=== PATIENT | male | born 1960 | race Caucasian/White ===

== ENCOUNTER 2021-10-24 18:22 | Emergency (ER) | payer MEDICAID ==
[~2021-10-24] VITALS: Ht 170.2 cm; Wt 90.1 kg
--- NOTE | 2021-10-24 18:47 | NUR ---
SPOKE TO DR JEAN CONCERNING PT. GIVEN VO TO START BASIC LABS. EKG IS ALSO ORDERED. NO ORDER TO START HEAD CT YET.
[2021-10-24 18:59] LABS: BASOPHILS # (AUTO) 0.1 X10'3 (0-0.2); BASOPHILS % (AUTO) 0.5 % (0-1); EOSINOPHILS # (AUTO) 0.1 X10'3 (0-0.9); EOSINOPHILS % (AUTO) 0.4 % (0-6); HEMATOCRIT 40.7 % (42.0-52.0); HEMOGLOBIN 13.4 g/dl (14.0-17.9); LYMPHOCYTES # (AUTO) 2.8 X10'3 (1.1-4.8); LYMPHOCYTES % (AUTO) 19.6 % (21-51); MEAN CORPUSCULAR HEMOGLOBIN 29.7 PG (27.0-31.0); MEAN PLATELET VOLUME 7.6 FL (7.4-10.4); MONOCYTES # (AUTO) 1.1 X10'3 (0-0.9); MONOCYTES % (AUTO) 7.8 % (2-12); NEUTROPHILS # (AUTO) 10.2 X10'3 (1.8-7.7); NEUTROPHILS % (AUTO) 71.7 % (42-75); PLATELET COUNT 373 X10'3 (140-440); RED BLOOD COUNT 4.52 X10'6 (4.70-6.10); RED CELL DISTRIBUTION WIDTH 13.9 % (11.5-14.5); WHITE BLOOD COUNT 14.2 X10'3 (4.5-11.0)
--- NOTE | 2021-10-24 19:00 | NUR ---
DR JEAN HAS ASSESSED PT. EKG COMPLETED. LABS DRAWN. PT BACK IN LOBBY WAITING FOR A ROOM.
[2021-10-24 19:21] LABS: ALANINE AMINOTRANSFERASE 28 U/L (12-78); ALBUMIN 3.6 G/DL (3.4-5.0); ALBUMIN/GLOBULIN RATIO 0.9 (1.1-1.5); ALKALINE PHOSPHATASE 95 IU/L (46-116); ANION GAP 7 (8-16); ASPARTATE AMINO TRANSFERASE 19 U/L (10-37); BILIRUBIN,TOTAL 0.2 MG/DL (0.1-1.0); BLOOD UREA NITROGEN 14 MG/DL (7-18); CALCIUM 9.6 MG/DL (8.5-10.1); CHLORIDE 110 MMOL/L (99-107); GLUCOSE 116 MG/DL (70-104); POTASSIUM 4.1 MMOL/L (3.5-5.1); SODIUM 145 MMOL/L (135-145); TOTAL CARBON DIOXIDE 27.8 MMOL/L (24-32); TOTAL PROTEIN 7.6 G/DL (6.4-8.2); eGFR 75 ML/MIN
--- NOTE | 2021-10-24 22:32 | NUR ---
PT GOT UP TO TALK WITH REGISTRATION AND FELL TO GROUND SEIZING. PT HAD A TONIC CLONIC MOVEMENTS FOR APPROXIMATELY 1.5 MINUTES AFTER WHICH HE BECAME POST ICTAL. DR VALLADARES CAME OUT TO [facility] AND ASSESSED PT. PT WAS PLACED ON A GURNEY BY [facility] AND MOVED TO ROOM 8.
[2021-10-24] MEDS ORDERED: levetiracetam inj 1,000 MG in normal saline 100ml IV soln 90 ML IV STA (22:36)
[2021-10-24] MEDS ORDERED: normal saline 1000ML IV soln IVB ONE (22:40)
[2021-10-24] MEDS ORDERED: LORazepam 2 mg/ml vial IV ONE (22:40)
--- NOTE | 2021-10-24 23:44 | NUR ---
Patient intermittently awake and talking. Able to answer questions appropriately. Patient current;y sleeping in bed, no signs of distres, vitals stable.
[2021-10-25 00:48] LABS: CLARITY,URINE CLEAR (Clear); COLOR,URINE YELLOW (Yellow); GLUCOSE, URINE NEGATIVE (Neg); KETONES,URINE NEGATIVE (Neg); LEUKOCYTE ESTERASE ,URINE NEGATIVE (Neg); NITRITES, URINE NEGATIVE (Neg); OCCULT BLOOD,URINE NEGATIVE (Neg); PH,URINE 5.5 (4.8-8.0); PROTEIN,URINE 30 mg/dl (Neg); UROBILINOGEN,URINE 0.2 E.U/dL (0.2-1.0)
[2021-10-25 00:53] LABS: UA COLLECTION TYPE URINAL
[2021-10-25 01:02] LABS: BACTERIA,URINE FEW /HPF (Neg); RBC,URINE NONE SEEN /HPF (0-2); SQUAMOUS EPITHELIAL CELL,UR FEW /LPF (FEW); WBC,URINE NONE SEEN /HPF (0-4)
--- NOTE | 2021-10-25 01:22 | NUR ---
Patient asleep, resting comfortably in bed. No signs of distress. Vital signs remain stable.
--- NOTE | 2021-10-25 04:37 | NUR ---
Patient awake. AOx4. Provided snacks per request with okay by MD. Patient tolerated well.
--- NOTE | 2021-10-25 09:45 | NUR ---
PT SPOKE WITH SS WORKER ERNESTINE. PT REQUESTING TO HAVE CAB TO TAKE HIM TO ATT STORE TO HAVE CHIP REPLACED OF HIS PHONE. PT REPORTS HE CAN CALL FRIENDS TO ASSIST HIM BACK TO HIS CAR AT [employer] WHICH HAS PT MEDICATION IN THERE. PT DECLINES MTM RIDE SET UP TO CAR IN [place].
--- NOTE | 2021-10-25 10:26 | NUR ---
PT PROVIDED SHIRT NO SHIRT FOUND WITH PT BELONGINGS
[2021-10-25 10:28] VITALS: BP 124/97
== END 2021-10-25 10:42 | disposition home or self-care (01) ==
LOC: ER 18:23
DX: R56.9 Unspecified convulsions (principal); R41.0 Disorientation, unspecified
CPT/HCPCS: 36415; 70450; 71045; 80053; 81001; 82948; 84145; 84484; 85025; 93005; 96361; 96365; 96375; 99285; J1953; J2060; J3490; J7030

== ENCOUNTER 2022-01-01 18:27 | Emergency (ER) | payer MEDICAID ==
[~2022-01-01] VITALS: Ht 175.3 cm; Wt 77.3 kg
[2022-01-01 19:17] VITALS: BP 135/69
[2022-01-01] MEDS ORDERED: ibuprofen 200mg tablet PO ONE (21:00)
== END 2022-01-01 21:18 | disposition home or self-care (01) ==
LOC: ER 18:28
DX: M79.675 Pain in left toe(s) (principal); M20.62 Acquired deformities of toe(s), unspecified, left foot; Z86.73 Personal history of transient ischemic attack (TIA), and cerebral infarction without residual deficits
CPT/HCPCS: 99283

== ENCOUNTER 2022-01-20 01:31 | Emergency (ER) | payer MEDICAID ==
[~2022-01-20] VITALS: Ht 182.9 cm; Wt 100.0 kg
--- NOTE | 2022-01-20 02:23 | NUR ---
He is more alert, warming up. He is back to baseline. Giving the nurses a comical hard time and teasing. He has no vascular access. Attempted. All veins are sclerotic and crepitus. made aware.
[2022-01-20 04:27] VITALS: BP 124/82
== END 2022-01-20 04:28 | disposition home or self-care (01) ==
LOC: ER 01:32
DX: I51.9 Heart disease, unspecified (principal); Z00.8 Encounter for other general examination
CPT/HCPCS: 70450; 71045; 93005; 99284

== ENCOUNTER 2022-08-29 14:45 | Emergency (ER) | payer MEDICAID | END 2022-08-29 15:37 | disposition left against medical advice (07) | LOC: ER 14:47 | DX: Z00.8 Encounter for other general examination (principal); Z53.21 Procedure and treatment not carried out due to patient leaving prior to being seen by health care provider ==

== ENCOUNTER 2022-09-09 18:56 | Emergency (ER) | payer MEDICAID ==
[~2022-09-09] VITALS: Ht 175.3 cm; Wt 81.8 kg
[2022-09-09 19:02] VITALS: BP 102/68
[2022-09-09] MEDS ORDERED: LIDOcaine 5% patch TP STA (19:39)
[2022-09-09] MEDS ORDERED: ibuprofen tablet 400 MG TABLET PO ONE (19:40)
[2022-09-09] MEDS ORDERED: LIDO1ADH78 TOP (19:44)
[2022-09-09] MEDS ORDERED: IBUP-860 PO (19:44)
== END 2022-09-09 20:31 | disposition home or self-care (01) ==
LOC: ER 18:57
DX: G89.29 Other chronic pain (principal); M54.59 Other low back pain; F17.200 Nicotine dependence, unspecified, uncomplicated; Z59.00 Homelessness unspecified; Z56.0 Unemployment, unspecified; Z91.81 History of falling
CPT/HCPCS: 99283; A6449

== ENCOUNTER 2022-09-12 21:54 | Emergency (ER) | payer MEDICAID ==
[~2022-09-12] VITALS: Ht 175.3 cm; Wt 70.0 kg
[~2022-09-12 21:54] MED LIST: IBUP-860 PO; LIDO1ADH78 TOP
[2022-09-12 22:18] VITALS: BP 106/47
[2022-09-12] MEDS ORDERED: ACET-890 PO (22:23)
== END 2022-09-12 23:58 | disposition home or self-care (01) ==
LOC: ER 21:55
DX: G89.29 Other chronic pain (principal); M54.9 Dorsalgia, unspecified; I51.9 Heart disease, unspecified; Z59.00 Homelessness unspecified; Z56.0 Unemployment, unspecified; Z79.899 Other long term (current) drug therapy
CPT/HCPCS: 99282

== ENCOUNTER 2022-09-15 03:23 | Emergency (ER) | payer MEDICAID ==
[~2022-09-15] VITALS: Ht 175.3 cm; Wt 86.4 kg
[~2022-09-15 03:23] MED LIST changes: +ACET-890 PO
[2022-09-15 03:27] VITALS: BP 159/78
[2022-09-15] MEDS ORDERED: HYDROcodone/acetaminophen 5mg/325mg tablet PO ONE ×2 (03:40→04:15)
[2022-09-15] MEDS ORDERED: naproxen 500mg tablet PO ONE ×2 (03:40→04:15)
== END 2022-09-15 04:30 | disposition left against medical advice (07) ==
LOC: ER 03:24
DX: M54.50 Low back pain, unspecified (principal); G89.29 Other chronic pain; R51.9 Headache, unspecified; Z59.00 Homelessness unspecified; Z56.0 Unemployment, unspecified
CPT/HCPCS: 99282

== ENCOUNTER 2022-09-17 12:03 | Emergency (ER) | payer MEDICAID ==
[~2022-09-17] VITALS: Ht 175.3 cm; Wt 84.1 kg
[2022-09-17 12:39] VITALS: BP 118/63
[2022-09-17] MEDS ORDERED: acetaminophen 325mg tablet PO ONE (14:45)
== END 2022-09-17 15:28 | disposition home or self-care (01) ==
LOC: ER 12:05
DX: G89.29 Other chronic pain (principal); M54.9 Dorsalgia, unspecified; Z88.0 Allergy status to penicillin; Z88.1 Allergy status to other antibiotic agents; Z88.8 Allergy status to other drugs, medicaments and biological substances; Z79.899 Other long term (current) drug therapy; Z59.00 Homelessness unspecified; Z56.0 Unemployment, unspecified
CPT/HCPCS: 99282; 99284

== ENCOUNTER 2023-11-11 20:11 | Inpatient (IN) | payer MEDICARE, MEDICAID ==
[~2023-11-11] VITALS: Ht 182.9 cm; Wt 93.0 kg
[~2023-11-11 20:11] MED LIST changes: -ACET-890 PO
[2023-11-11] MEDS ORDERED: levetiracetam inj 1,000 MG in normal saline 100ml IV soln 100 ML IV STA (20:23)
[2023-11-11] MEDS: normal saline 1000ML IV soln IVB ONE (20:33)
[2023-11-11] MEDS: levetiracetam-NS 1000mg/100ml 100 ML IV STA (20:39)
[2023-11-11] MEDS: levetiracetam 250mg tablet PO ONE (22:04)
[2023-11-11] MEDS: acetaminophen 325mg tablet PO ONE (22:10)
[2023-11-11 22:11] LABS: BASOPHILS # (AUTO) 0.1 X10'3 (0-0.2); BASOPHILS % (AUTO) 0.4 % (0-1); EOSINOPHILS # (AUTO) 0.1 X10'3 (0-0.9); EOSINOPHILS % (AUTO) 0.7 % (0-6); HEMATOCRIT 35.7 % (42.0-52.0); LYMPHOCYTES # (AUTO) 1.7 X10'3 (1.1-4.8); LYMPHOCYTES % (AUTO) 9.9 % (21-51); MEAN CORPUSCULAR HEMOGLOBIN 30.7 PG (27.0-31.0); MEAN CORPUSCULAR HGB CONC 33.7 g/dL (33.0-36.5); MEAN CORPUSCULAR VOLUME 91.1 FL (78-98); MEAN PLATELET VOLUME 7.1 FL (7.4-10.4); MONOCYTES # (AUTO) 1.3 X10'3 (0-0.9); MONOCYTES % (AUTO) 7.6 % (2-12); NEUTROPHILS # (AUTO) 14.2 X10'3 (1.8-7.7); NEUTROPHILS % (AUTO) 81.4 % (42-75); PLATELET COUNT 296 X10'3 (140-440); RED BLOOD COUNT 3.92 X10'6 (4.70-6.10); RED CELL DISTRIBUTION WIDTH 13.5 % (11.5-14.5); WHITE BLOOD COUNT 17.4 X10'3 (4.5-11.0)
[2023-11-11 22:23] LABS: ALANINE AMINOTRANSFERASE 26 U/L (12-78); ALBUMIN 3.1 G/DL (3.4-5.0); ALKALINE PHOSPHATASE 88 IU/L (46-116); ANION GAP 8 (8-16); ASPARTATE AMINO TRANSFERASE 31 U/L (10-37); BILIRUBIN,TOTAL 0.2 MG/DL (0.1-1.0); BLOOD UREA NITROGEN 14 MG/DL (7-18); BUN/CREATININE RATIO 16.7 (10.0-20.0); CALCIUM 8.6 MG/DL (8.5-10.1); CHLORIDE 102 MMOL/L (99-107); CREATININE 0.84 MG/DL (0.60-1.10); GLUCOSE 114 MG/DL (70-104); POTASSIUM 3.9 MMOL/L (3.5-5.1); SODIUM 134 MMOL/L (135-145); TOTAL CARBON DIOXIDE 24.3 MMOL/L (24-32); TOTAL PROTEIN 6.2 G/DL (6.4-8.2); eCRCL 88 ML/MIN; eGFR > 90 ML/MIN
[2023-11-11] MEDS ORDERED: acetaminophen 325mg tablet PO PRN ×2 (23:45)
[2023-11-11] MEDS ORDERED: magnesium Cl slow-release 64mg tablet PO PRN (23:45)
[2023-11-11] MEDS ORDERED: magnesium sulf-water 2g/50mL 50 ML IV PRN (23:45)
[2023-11-11] MEDS ORDERED: mag hydrox/Alum hydrox/simeth 30ml oral suspension PO PRN (23:45)
[2023-11-11] MEDS ORDERED: potassium Cl 40MEQ/1/2NS 520ml 520 ML IV PRN (23:45)
[2023-11-11] MEDS ORDERED: magnesium sulf-water 4G/100mL 100 ML IV PRN (23:45)
[2023-11-11] MEDS ORDERED: ondansetron/PF 4mg/2ml inj IV PRN (23:45)
[2023-11-11] MEDS ORDERED: magnesium hydroxide 30ml (MOM) UD suspension PO PRN (23:45)
[2023-11-11] MEDS ORDERED: potassium Cl 20 mEq SR tablet PO PRN ×2 (23:45)
[2023-11-12 00:20] LABS: HEMOGLOBIN A1C 5.6 % (4.5-6.2)
[2023-11-12 00:24] LABS: PRO BRAIN NATRIURETIC PEPTIDE 128 PG/ML (0-125)
[2023-11-12 01:36] LABS: BASOPHILS % (AUTO) 0.2 % (0-1); EOSINOPHILS # (AUTO) 0.1 X10'3 (0-0.9); EOSINOPHILS % (AUTO) 0.6 % (0-6); HEMATOCRIT 36.5 % (42.0-52.0); LYMPHOCYTES # (AUTO) 1.9 X10'3 (1.1-4.8); LYMPHOCYTES % (AUTO) 10.9 % (21-51); MEAN CORPUSCULAR HGB CONC 32.9 g/dL (33.0-36.5); MEAN CORPUSCULAR VOLUME 91.1 FL (78-98); MEAN PLATELET VOLUME 7.6 FL (7.4-10.4); MONOCYTES # (AUTO) 1.1 X10'3 (0-0.9); MONOCYTES % (AUTO) 6.3 % (2-12); NEUTROPHILS # (AUTO) 14.4 X10'3 (1.8-7.7); PLATELET COUNT 299 X10'3 (140-440); RED CELL DISTRIBUTION WIDTH 13.6 % (11.5-14.5); WHITE BLOOD COUNT 17.6 X10'3 (4.5-11.0)
[2023-11-12 01:45] LABS: ANION GAP 6 (8-16); BLOOD UREA NITROGEN 12 MG/DL (7-18); CALCIUM 8.5 MG/DL (8.5-10.1); CHLORIDE 104 MMOL/L (99-107); CHOL/HDL RATIO 2.7 (0.00-4.99); CHOLESTEROL 135 MG/DL (0-200); GLUCOSE 111 MG/DL (70-104); HDL CHOLESTEROL 50 MG/DL (35-60); LDL CHOLESTEROL 78 MG/DL (50-100); MAGNESIUM 1.9 MG/DL (1.5-2.4); SODIUM 135 MMOL/L (135-145); TOTAL CARBON DIOXIDE 25.3 MMOL/L (24-32); TRIGLYCERIDES 53 MG/DL (20-135); eCRCL 92 ML/MIN; eGFR > 90 ML/MIN
[2023-11-12 05:13] LABS: BILIRUBIN,URINE NEGATIVE (Neg); CLARITY,URINE CLEAR (Clear); COLOR,URINE YELLOW (Yellow); GLUCOSE, URINE NEGATIVE (Neg); KETONES,URINE NEGATIVE (Neg); LEUKOCYTE ESTERASE ,URINE NEGATIVE (Neg); NITRITES, URINE NEGATIVE (Neg); OCCULT BLOOD,URINE TRACE-LYSED (Neg); PROTEIN,URINE NEGATIVE (Neg); UROBILINOGEN,URINE 0.2 E.U/dL (0.2-1.0)
[2023-11-12 05:20] LABS: UA COLLECTION TYPE CLN CATCH MIDSTREAM
[2023-11-12 05:41] LABS: BACTERIA,URINE FEW /HPF (Neg); RBC,URINE 0-2 /HPF (0-2); SQUAMOUS EPITHELIAL CELL,UR FEW /LPF (FEW); WBC,URINE 0-4 /HPF (0-4)
[2023-11-12] MEDS ORDERED: PANT40TA54 PO (06:22)
[2023-11-12] MEDS ORDERED: CLOP75TA34 PO (06:22)
[2023-11-12] MEDS ORDERED: LISI10TA27 PO (06:22)
[2023-11-12] MEDS ORDERED: ATOR40TA72 PO (06:22)
[2023-11-12] MEDS ORDERED: METO-395 PO (06:22)
[2023-11-12] MEDS ORDERED: FLO0.4C PO (06:22)
[2023-11-12] MEDS ORDERED: LACO100T4 PO (06:22)
[2023-11-12] MEDS ORDERED: CHOL100017 PO (06:22)
[2023-11-12] MEDS: K and/or MAG REPLACEMENT MC SCH (08:00)
[2023-11-12] MEDS: docusate sod 100mg capsule PO SCH (08:00)
[2023-11-12 10:35] VITALS: BP 121/61; PULSE 60; RESP 16; TEMP 98; O2SAT 95
[2023-11-12 14:28] VITALS: RESP 16; O2SAT 95
[2023-11-12 18:00] VITALS: BP 124/65; PULSE 64; RESP 20; TEMP 97.6; O2SAT 95
[2023-11-12 23:00] VITALS: BP 121/63; PULSE 61; RESP 18; TEMP 97.9; O2SAT 94
[2023-11-12] MEDS: LACOSAMIDE 50 MG TABLET PO SCH (23:15)
[2023-11-13 05:32] LABS: BASOPHILS % (AUTO) 0.3 % (0-1); EOSINOPHILS # (AUTO) 0.4 X10'3 (0-0.9); EOSINOPHILS % (AUTO) 2.9 % (0-6); HEMATOCRIT 37.8 % (42.0-52.0); HEMOGLOBIN 12.3 g/dl (14.0-17.9); LYMPHOCYTES # (AUTO) 3.3 X10'3 (1.1-4.8); LYMPHOCYTES % (AUTO) 25.2 % (21-51); MEAN CORPUSCULAR HEMOGLOBIN 29.9 PG (27.0-31.0); MEAN CORPUSCULAR HGB CONC 32.5 g/dL (33.0-36.5); MEAN CORPUSCULAR VOLUME 91.8 FL (78-98); MEAN PLATELET VOLUME 7.3 FL (7.4-10.4); MONOCYTES # (AUTO) 1.2 X10'3 (0-0.9); MONOCYTES % (AUTO) 9.1 % (2-12); NEUTROPHILS # (AUTO) 8.2 X10'3 (1.8-7.7); NEUTROPHILS % (AUTO) 62.5 % (42-75); PLATELET COUNT 307 X10'3 (140-440); RED BLOOD COUNT 4.12 X10'6 (4.70-6.10); RED CELL DISTRIBUTION WIDTH 13.7 % (11.5-14.5); WHITE BLOOD COUNT 13.1 X10'3 (4.5-11.0)
[2023-11-13 05:39] LABS: ANION GAP 8 (8-16); BLOOD UREA NITROGEN 9 MG/DL (7-18); CALCIUM 8.9 MG/DL (8.5-10.1); CHLORIDE 107 MMOL/L (99-107); CREATININE 0.75 MG/DL (0.60-1.10); GLUCOSE 79 MG/DL (70-104); MAGNESIUM 2.1 MG/DL (1.5-2.4); POTASSIUM 3.9 MMOL/L (3.5-5.1); SODIUM 142 MMOL/L (135-145); TOTAL CARBON DIOXIDE 26.8 MMOL/L (24-32); eCRCL 108 ML/MIN; eGFR > 90 ML/MIN
[2023-11-13 06:11] VITALS: BP 118/69; PULSE 61; RESP 16; TEMP 97.5; O2SAT 97
[2023-11-13] MEDS: lisinopril 10 MG tablet PO SCH (08:00)
[2023-11-13] MEDS: pantoprazole 40mg Tablet.DR PO SCH (09:16)
[2023-11-13] MEDS: metoprolol succinate 25mg (24-HOUR) SR. Tablet PO SCH (09:16)
[2023-11-13] MEDS: clopidogrel 75mg tablet PO SCH (09:17)
[2023-11-13] MEDS: atorvastatin 20mg tablet PO SCH (09:17)
[2023-11-13] MEDS: tamsulosin 0.4mg capsule PO SCH (09:17)
[2023-11-13 09:30] VITALS: RESP 16
[2023-11-13 10:00] VITALS: BP 116/58; PULSE 60; RESP 18; TEMP 98.6; O2SAT 93
[2023-11-13] MEDS ORDERED: LACO50TA2 PO (15:07)
[2023-11-13] MEDS ORDERED: LACO100T2 PO (15:13)
[2023-11-13] MEDS ORDERED: SULF1TAB49 PO (16:02)
[2023-11-13] MEDS: DOXYCYCLINE 100MG CAPSULE PO SCH (16:17)
== END 2023-11-13 16:58 | disposition home or self-care (01) | DRG 101 ==
LOC: ER 20:11 → ED HOLD 23:55 → ORTHO 4S 11-12 09:04
PROVIDERS: ADMIT Internal Medicine Critical Care Medicine; ATTEND Registered Nurse Psychiatric/Mental Health
PROC: 4A00X4Z Measurement of Central Nervous Electrical Activity, External Approach (ICD-10-PCS; principal; 2023-11-13)
DX: G40.909 Epilepsy, unspecified, not intractable, without status epilepticus (principal); Z59.00 Homelessness unspecified; M48.02 Spinal stenosis, cervical region; G89.29 Other chronic pain; M54.9 Dorsalgia, unspecified; D72.829 Elevated white blood cell count, unspecified; Z79.899 Other long term (current) drug therapy; Z88.1 Allergy status to other antibiotic agents; Z88.0 Allergy status to penicillin; Z88.6 Allergy status to analgesic agent; Z88.2 Allergy status to sulfonamides; Z86.73 Personal history of transient ischemic attack (TIA), and cerebral infarction without residual deficits
CPT/HCPCS: 36415; 70450; 71045; 72125; 80048; 80053; 80061; 81001; 83036; 83605; 83735; 83880; 84145; 85025; 93005; 95816; 97110; 97116; 97161; 99285; G0378; J1953; J7030; L0172

== ENCOUNTER 2023-12-29 18:16 | Emergency (ER) | payer MEDICAID, MEDICARE ==
[~2023-12-29] VITALS: Ht 172.7 cm; Wt 84.1 kg
[~2023-12-29 18:16] MED LIST changes: +ATOR40TA72 PO; +CHOL100017 PO; +CLOP75TA34 PO; +FLO0.4C PO; -IBUP-860 PO; +LACO100T2 PO; +LACO50TA2 PO; -LIDO1ADH78 TOP; +LISI10TA27 PO; +METO-395 PO; +PANT40TA54 PO
[2023-12-29 18:17] VITALS: BP 141/66; PULSE 65; O2SAT 98
[2023-12-29 18:32] VITALS: RESP 17
[2023-12-29] MEDS: ketorolac trometh 30MG/ML vial 30 MG/ML VIAL IM ONE (18:32)
[2023-12-29] MEDS ORDERED: IBUP-1984 PO (18:38)
[2023-12-29 18:52] VITALS: TEMP 98.8
== END 2023-12-29 18:54 | disposition home or self-care (01) ==
LOC: ER 18:16
DX: S46.811A Strain of other muscles, fascia and tendons at shoulder and upper arm level, right arm, initial encounter (principal); S29.012A Strain of muscle and tendon of back wall of thorax, initial encounter; M62.838 Other muscle spasm; G89.29 Other chronic pain; G40.909 Epilepsy, unspecified, not intractable, without status epilepticus; Z88.0 Allergy status to penicillin; Z88.8 Allergy status to other drugs, medicaments and biological substances; Z88.1 Allergy status to other antibiotic agents; Z79.899 Other long term (current) drug therapy; Z86.73 Personal history of transient ischemic attack (TIA), and cerebral infarction without residual deficits; Z59.00 Homelessness unspecified; X58.XXXA Exposure to other specified factors, initial encounter; Y93.89 Activity, other specified; Y92.89 Other specified places as the place of occurrence of the external cause; Y99.8 Other external cause status
CPT/HCPCS: 96372; 99283; J1885

== ENCOUNTER 2024-01-02 19:31 | Emergency (ER) | payer MEDICARE ==
[~2024-01-02] VITALS: Ht 172.7 cm; Wt 90.9 kg
[~2024-01-02 19:31] MED LIST changes: +IBUP-1984 PO
[2024-01-02 20:17] LABS: BASOPHILS % (AUTO) 0.3 % (0-1); EOSINOPHILS # (AUTO) 0.1 X10'3 (0-0.9); EOSINOPHILS % (AUTO) 0.8 % (0-6); HEMATOCRIT 39.9 % (42.0-52.0); HEMOGLOBIN 13.2 g/dl (14.0-17.9); LYMPHOCYTES # (AUTO) 2.7 X10'3 (1.1-4.8); LYMPHOCYTES % (AUTO) 19.4 % (21-51); MEAN CORPUSCULAR HEMOGLOBIN 30.5 PG (27.0-31.0); MEAN CORPUSCULAR HGB CONC 33.1 g/dL (33.0-36.5); MEAN CORPUSCULAR VOLUME 92.3 FL (78-98); MEAN PLATELET VOLUME 7.1 FL (7.4-10.4); MONOCYTES # (AUTO) 1.1 X10'3 (0-0.9); MONOCYTES % (AUTO) 7.7 % (2-12); NEUTROPHILS # (AUTO) 9.9 X10'3 (1.8-7.7); NEUTROPHILS % (AUTO) 71.8 % (42-75); PLATELET COUNT 314 X10'3 (140-440); RED BLOOD COUNT 4.32 X10'6 (4.70-6.10); RED CELL DISTRIBUTION WIDTH 14.3 % (11.5-14.5); WHITE BLOOD COUNT 13.8 X10'3 (4.5-11.0)
[2024-01-02 20:40] LABS: ALANINE AMINOTRANSFERASE 25 U/L (12-78); ALBUMIN 3.7 G/DL (3.4-5.0); ALBUMIN/GLOBULIN RATIO 1.1 (1.1-1.5); ALKALINE PHOSPHATASE 99 IU/L (46-116); ANION GAP 5 (8-16); ASPARTATE AMINO TRANSFERASE 10 U/L (10-37); BILIRUBIN,TOTAL 0.2 MG/DL (0.1-1.0); BLOOD UREA NITROGEN 13 MG/DL (7-18); BUN/CREATININE RATIO 15.1 (10.0-20.0); CALCIUM 9.5 MG/DL (8.5-10.1); CHLORIDE 106 MMOL/L (99-107); CREATININE 0.86 MG/DL (0.60-1.10); GLUCOSE 92 MG/DL (70-104); SODIUM 139 MMOL/L (135-145); TOTAL CARBON DIOXIDE 28.3 MMOL/L (24-32); eCRCL 83 ML/MIN; eGFR 89 ML/MIN
[2024-01-02 20:45] LABS: BILIRUBIN,URINE NEGATIVE (Neg); CLARITY,URINE CLEAR (Clear); COLOR,URINE YELLOW (Yellow); GLUCOSE, URINE NEGATIVE (Neg); KETONES,URINE NEGATIVE (Neg); LEUKOCYTE ESTERASE ,URINE TRACE (Neg); NITRITES, URINE NEGATIVE (Neg); OCCULT BLOOD,URINE NEGATIVE (Neg); PROTEIN,URINE NEGATIVE (Neg); UROBILINOGEN,URINE 0.2 E.U/dL (0.2-1.0)
[2024-01-02 20:50] LABS: UA COLLECTION TYPE URINAL
[2024-01-02 20:51] LABS: BACTERIA,URINE FEW /HPF (Neg); RBC,URINE 0-2 /HPF (0-2); SQUAMOUS EPITHELIAL CELL,UR NONE SEEN /LPF (FEW)
[2024-01-02 20:54] LABS: URINE AMPHETAMINE SCREEN NEGATIVE (Neg); URINE BARBITUATE SCREEN NEGATIVE (Neg); URINE BENZODIAZEPINES SCREEN NEGATIVE (Neg); URINE CANNABINOID SCREEN NEGATIVE (Neg); URINE COCAINE SCREEN NEGATIVE (Neg); URINE METHADONE SCREEN NEGATIVE (Neg); URINE OPIATE SCREEN NEGATIVE (Neg); URINE PHENCYCLIDINE SCREEN NEGATIVE (Neg)
[2024-01-02] MEDS: nitrofuran monohydrate/nitrofuran macrocrysal 100 MG (MacroBID) capsule PO ONE (23:02)
[2024-01-02] MEDS: ketorolac trometh 30MG/ML vial 30 MG/ML VIAL IM ONE (23:02)
[2024-01-02 23:15] VITALS: BP 156/72; PULSE 63; RESP 17; TEMP 98.9; O2SAT 96
== END 2024-01-02 23:17 | disposition home or self-care (01) ==
LOC: ER 19:31
DX: R07.89 Other chest pain (principal); G89.29 Other chronic pain; M54.9 Dorsalgia, unspecified; Z88.0 Allergy status to penicillin; Z88.8 Allergy status to other drugs, medicaments and biological substances; Z79.899 Other long term (current) drug therapy; Z86.73 Personal history of transient ischemic attack (TIA), and cerebral infarction without residual deficits; Z56.0 Unemployment, unspecified; Z59.00 Homelessness unspecified
CPT/HCPCS: 36415; 71045; 80053; 80305; 81001; 84484; 85025; 87077; 87088; 87186; 93005; 96372; 99285; J1885

== ENCOUNTER 2024-01-08 16:54 | Emergency (ER) | payer MEDICARE ==
[~2024-01-08] VITALS: Ht 172.7 cm; Wt 86.0 kg
[2024-01-08 17:02] VITALS: BP 147/84; PULSE 78; RESP 16; O2SAT 99
[2024-01-08] MEDS: acetaminophen 325mg tablet PO ONE (19:11)
[2024-01-08 20:06] VITALS: TEMP 98.1
== END 2024-01-08 20:08 | disposition home or self-care (01) ==
LOC: ER 16:55
DX: S29.012A Strain of muscle and tendon of back wall of thorax, initial encounter (principal); M79.605 Pain in left leg; G89.29 Other chronic pain; M54.9 Dorsalgia, unspecified; Z86.73 Personal history of transient ischemic attack (TIA), and cerebral infarction without residual deficits; Z59.00 Homelessness unspecified; Z56.0 Unemployment, unspecified; Z60.2 Problems related to living alone; Z88.0 Allergy status to penicillin; Z88.8 Allergy status to other drugs, medicaments and biological substances; Z79.899 Other long term (current) drug therapy; X58.XXXA Exposure to other specified factors, initial encounter; Y93.89 Activity, other specified; Y92.89 Other specified places as the place of occurrence of the external cause; Y99.8 Other external cause status
CPT/HCPCS: 93971; 99284

== ENCOUNTER 2024-03-24 13:55 | Inpatient (IN) | payer MEDICARE, MEDICAID ==
[~2024-03-24] VITALS: Ht 172.7 cm; Wt 78.0 kg
[~2024-03-24 13:55] MED LIST changes: -IBUP-1984 PO
[2024-03-24 14:31] LABS: BASOPHILS % (AUTO) 0.3 % (0-1); EOSINOPHILS % (AUTO) 0.4 % (0-6); HEMATOCRIT 43.1 % (42.0-52.0); HEMOGLOBIN 14.7 g/dl (14.0-17.9); LYMPHOCYTES # (AUTO) 1.9 X10'3 (1.1-4.8); LYMPHOCYTES % (AUTO) 22.2 % (21-51); MEAN CORPUSCULAR HEMOGLOBIN 30.3 PG (27.0-31.0); MEAN CORPUSCULAR VOLUME 89.3 FL (78-98); MEAN PLATELET VOLUME 7.9 FL (7.4-10.4); MONOCYTES # (AUTO) 0.9 X10'3 (0-0.9); NEUTROPHILS # (AUTO) 5.8 X10'3 (1.8-7.7); NEUTROPHILS % (AUTO) 67.1 % (42-75); PLATELET COUNT 217 X10'3 (140-440); RED BLOOD COUNT 4.83 X10'6 (4.70-6.10); RED CELL DISTRIBUTION WIDTH 13.6 % (11.5-14.5); WHITE BLOOD COUNT 8.7 X10'3 (4.5-11.0)
[2024-03-24 14:55] LABS: ALANINE AMINOTRANSFERASE 18 U/L (12-78); ALBUMIN 3.5 G/DL (3.4-5.0); ALBUMIN/GLOBULIN RATIO 0.7 (1.1-1.5); ALKALINE PHOSPHATASE 89 IU/L (46-116); ANION GAP 8 (8-16); ASPARTATE AMINO TRANSFERASE 29 U/L (10-37); BILIRUBIN,TOTAL 0.3 MG/DL (0.1-1.0); BLOOD UREA NITROGEN 14 MG/DL (7-18); BUN/CREATININE RATIO 13.6 (10.0-20.0); CALCIUM 9.6 MG/DL (8.5-10.1); CHLORIDE 96 MMOL/L (99-107); CREATININE 1.03 MG/DL (0.60-1.10); GLUCOSE 100 MG/DL (70-104); SODIUM 131 MMOL/L (135-145); TOTAL CARBON DIOXIDE 26.8 MMOL/L (24-32); TOTAL PROTEIN 8.3 G/DL (6.4-8.2); eCRCL 68 ML/MIN; eGFR 72 ML/MIN
[2024-03-24 14:59] LABS: PRO BRAIN NATRIURETIC PEPTIDE 240 PG/ML (0-125)
[2024-03-24] MEDS ORDERED: magnesium hydroxide 30ml (MOM) UD suspension PO PRN (20:10)
[2024-03-24] MEDS ORDERED: acetaminophen 325mg tablet PO PRN (20:10)
[2024-03-24] MEDS ORDERED: metoprolol tartrate 1mg/ml inj IV PRN (20:10)
[2024-03-24] MEDS ORDERED: potassium Cl 40MEQ/1/2NS 520ml 520 ML IV PRN (20:10)
[2024-03-24] MEDS ORDERED: potassium Cl 20 mEq SR tablet PO PRN ×2 (20:10)
[2024-03-24] MEDS ORDERED: magnesium Cl slow-release 64mg tablet PO PRN (20:10)
[2024-03-24] MEDS ORDERED: magnesium sulf-water 2g/50mL 50 ML IV PRN (20:10)
[2024-03-24] MEDS ORDERED: ondansetron/PF 4mg/2ml inj IV PRN (20:10)
[2024-03-24] MEDS ORDERED: aminophylline 500mg/20ml vial IV PRN (20:10)
[2024-03-24] MEDS ORDERED: nitroGLYCERIN 0.4mg SUBLingual tab SL PRN ×2 (20:10)
[2024-03-24] MEDS ORDERED: morphine 2 MG/ML inj. syringe IV PRN (20:10)
[2024-03-24] MEDS ORDERED: magnesium sulf-water 4G/100mL 100 ML IV PRN (20:10)
[2024-03-24] MEDS ORDERED: mag hydrox/Alum hydrox/simeth 30ml oral suspension PO PRN (20:10)
[2024-03-24] MEDS: aspirin 325mg tablet PO ONE (21:02)
[2024-03-24 22:15] VITALS: BP_SYST 77; BP_SYST 83; BP_DIAS 47; BP_DIAS 53; PULSE 77; RESP 17; TEMP 98.3; O2SAT 95
[2024-03-24] MEDS: nitroGLYCERIN 0.4mg SUBLingual tab SL ONE (22:50)
[2024-03-24] MEDS: normal saline 1000ml 1,000 ML IV ONE (23:32)
[2024-03-25] VITALS (18 sets, daily range): BP systolic 82–123; BP diastolic 45–68; PULSE 60–90; RESP 13–20; TEMP 97.2–98.1; O2SAT 93–98
[2024-03-25] MEDS: normal saline 1000ml 1,000 ML IV SCH ×2 (00:53→01:30)
[2024-03-25] MEDS: levetiracetam 250mg tablet PO SCH (00:56)
[2024-03-25] MEDS: diltiazem 30mg tablet PO SCH (01:31)
[2024-03-25 06:50] LABS: BASOPHILS % (AUTO) 0.3 % (0-1); EOSINOPHILS # (AUTO) 0.1 X10'3 (0-0.9); EOSINOPHILS % (AUTO) 0.9 % (0-6); HEMATOCRIT 34.6 % (42.0-52.0); HEMOGLOBIN 11.8 g/dl (14.0-17.9); LYMPHOCYTES # (AUTO) 2.5 X10'3 (1.1-4.8); LYMPHOCYTES % (AUTO) 26.5 % (21-51); MEAN CORPUSCULAR HEMOGLOBIN 30.3 PG (27.0-31.0); MEAN CORPUSCULAR VOLUME 89.1 FL (78-98); MEAN PLATELET VOLUME 8.6 FL (7.4-10.4); MONOCYTES # (AUTO) 1.2 X10'3 (0-0.9); MONOCYTES % (AUTO) 12.7 % (2-12); NEUTROPHILS # (AUTO) 5.6 X10'3 (1.8-7.7); NEUTROPHILS % (AUTO) 59.6 % (42-75); PLATELET COUNT 211 X10'3 (140-440); RED BLOOD COUNT 3.88 X10'6 (4.70-6.10); RED CELL DISTRIBUTION WIDTH 13.5 % (11.5-14.5); WHITE BLOOD COUNT 9.3 X10'3 (4.5-11.0)
[2024-03-25 07:04] LABS: APTT 25 SECONDS (22-32); PROTHROMBIN TIME 10.3 SECONDS (9.0-12.0)
[2024-03-25 07:23] LABS: HEMOGLOBIN A1C 5.9 % (4.5-6.2)
[2024-03-25 07:52] LABS: ALANINE AMINOTRANSFERASE 14 U/L (12-78); ALBUMIN 2.5 G/DL (3.4-5.0); ALBUMIN/GLOBULIN RATIO 0.7 (1.1-1.5); ALKALINE PHOSPHATASE 62 IU/L (46-116); ANION GAP 9 (8-16); ASPARTATE AMINO TRANSFERASE 21 U/L (10-37); BILIRUBIN,TOTAL 0.3 MG/DL (0.1-1.0); BLOOD UREA NITROGEN 9 MG/DL (7-18); CALCIUM 8.3 MG/DL (8.5-10.1); CHLORIDE 103 MMOL/L (99-107); CHOL/HDL RATIO 3.8 (0.00-4.99); CHOLESTEROL 118 MG/DL (0-200); CREATININE 0.75 MG/DL (0.60-1.10); GLUCOSE 71 MG/DL (70-104); HDL CHOLESTEROL 31 MG/DL (35-60); MAGNESIUM 1.8 MG/DL (1.5-2.4); PHOSPHORUS 2.9 MG/DL (2.3-4.5); POTASSIUM 3.7 MMOL/L (3.5-5.1); SODIUM 136 MMOL/L (135-145); THYROID STIMULATING HORMONE 0.92 ulU/ml (0.34-4.50); TOTAL CARBON DIOXIDE 24.3 MMOL/L (24-32); TRIGLYCERIDES 99 MG/DL (20-135); eCRCL 94 ML/MIN; eGFR > 90 ML/MIN
[2024-03-25 07:56] LABS: LDL CHOLESTEROL 76 MG/DL (50-100)
[2024-03-25] MEDS: K and/or MAG REPLACEMENT MC SCH (08:00)
[2024-03-25] MEDS: docusate sod 100mg capsule PO SCH (08:00)
[2024-03-25] MEDS: aspirin 81mg, enteric-coated 1 TAB TABLET.DR PO SCH (08:39)
[2024-03-25] MEDS: atorvastatin 20mg tablet PO SCH (08:39)
[2024-03-25] MEDS: clopidogrel 75mg tablet PO SCH (08:39)
[2024-03-25 09:18] LABS: FREE T4 (FREE THYROXINE) 1.02 NG/DL (0.73-1.40)
[2024-03-25] MEDS: normal saline 1000ml 1,000 ML IV ONE (11:54)
[2024-03-25] MEDS: normal saline 500ml IV soln 500 ML IV ONE (11:55)
[2024-03-25] MEDS: regadenoson 0.4mg/5ml syringe IV PRN (12:11)
[2024-03-25] MEDS ORDERED: HYDROcodone/acetaminophen 5mg/325mg tablet PO PRN (15:45)
[2024-03-25] MEDS: enoxaparin 40mg/0.4ml syringe SQ SCH (20:58)
[2024-03-26 02:00] VITALS: BP 103/50; PULSE 60; RESP 16; TEMP 97.6; O2SAT 93
[2024-03-26 04:49] VITALS: RESP 20; O2SAT 98
[2024-03-26 06:00] VITALS: BP 118/52; PULSE 60; RESP 14; TEMP 98; O2SAT 93
[2024-03-26 06:56] LABS: BASOPHILS % (AUTO) 0.3 % (0-1); EOSINOPHILS # (AUTO) 0.1 X10'3 (0-0.9); EOSINOPHILS % (AUTO) 0.8 % (0-6); HEMATOCRIT 34.9 % (42.0-52.0); HEMOGLOBIN 11.8 g/dl (14.0-17.9); LYMPHOCYTES # (AUTO) 2.2 X10'3 (1.1-4.8); LYMPHOCYTES % (AUTO) 21.3 % (21-51); MEAN CORPUSCULAR HEMOGLOBIN 30.2 PG (27.0-31.0); MEAN CORPUSCULAR HGB CONC 33.7 g/dL (33.0-36.5); MEAN CORPUSCULAR VOLUME 89.5 FL (78-98); MEAN PLATELET VOLUME 8.2 FL (7.4-10.4); MONOCYTES # (AUTO) 0.9 X10'3 (0-0.9); MONOCYTES % (AUTO) 8.9 % (2-12); NEUTROPHILS % (AUTO) 68.7 % (42-75); PLATELET COUNT 255 X10'3 (140-440); RED BLOOD COUNT 3.89 X10'6 (4.70-6.10); RED CELL DISTRIBUTION WIDTH 13.7 % (11.5-14.5); WHITE BLOOD COUNT 10.2 X10'3 (4.5-11.0)
[2024-03-26 07:03] LABS: APTT 29 SECONDS (22-32); PROTHROMBIN TIME 10.4 SECONDS (9.0-12.0)
[2024-03-26 07:27] LABS: ALANINE AMINOTRANSFERASE 12 U/L (12-78); ALBUMIN 2.4 G/DL (3.4-5.0); ALBUMIN/GLOBULIN RATIO 0.7 (1.1-1.5); ALKALINE PHOSPHATASE 60 IU/L (46-116); ANION GAP 7 (8-16); ASPARTATE AMINO TRANSFERASE 17 U/L (10-37); BILIRUBIN,TOTAL 0.3 MG/DL (0.1-1.0); BLOOD UREA NITROGEN 4 MG/DL (7-18); BUN/CREATININE RATIO 6.8 (10.0-20.0); CALCIUM 8.3 MG/DL (8.5-10.1); CHLORIDE 105 MMOL/L (99-107); CREATININE 0.59 MG/DL (0.60-1.10); GLUCOSE 83 MG/DL (70-104); PHOSPHORUS 2.6 MG/DL (2.3-4.5); POTASSIUM 3.6 MMOL/L (3.5-5.1); SODIUM 136 MMOL/L (135-145); TOTAL CARBON DIOXIDE 24.5 MMOL/L (24-32); TOTAL PROTEIN 5.8 G/DL (6.4-8.2); eCRCL 119 ML/MIN; eGFR > 90 ML/MIN
[2024-03-26 08:42] LABS: MAGNESIUM 1.9 MG/DL (1.5-2.4)
[2024-03-26] MEDS ORDERED: HYDR-3965 PO (10:56)
[2024-03-26] MEDS: acetaminophen 325mg tablet PO PRN (11:02)
[2024-03-26 12:00] VITALS: BP 112/57; PULSE 60; RESP 18; TEMP 97.2; O2SAT 93
== END 2024-03-26 13:28 | disposition home or self-care (01) | DRG 313 ==
LOC: ER 13:55 → ED HOLD 20:10 → PCU 3S 22:14
PROVIDERS: ADMIT Surgery Surgical Critical Care; ATTEND Internal Medicine
PROC: 4A02XM4 Measurement of Cardiac Total Activity, External Approach (ICD-10-PCS; principal; 2024-03-25)
PROC: 3E033HZ Introduction of Radioactive Substance into Peripheral Vein, Percutaneous Approach (ICD-10-PCS; 2024-03-25)
DX: R07.89 Other chest pain (principal); E87.1 Hypo-osmolality and hyponatremia; E78.5 Hyperlipidemia, unspecified; E87.8 Other disorders of electrolyte and fluid balance, not elsewhere classified; Z86.73 Personal history of transient ischemic attack (TIA), and cerebral infarction without residual deficits; Z88.1 Allergy status to other antibiotic agents; Z88.0 Allergy status to penicillin; Z88.8 Allergy status to other drugs, medicaments and biological substances; Z79.899 Other long term (current) drug therapy; Z95.1 Presence of aortocoronary bypass graft
CPT/HCPCS: 36415; 71045; 78452; 80053; 80061; 83036; 83735; 83880; 84100; 84439; 84443; 84484; 85025; 85610; 85730; 87081; 93005; 93017; 93306; 99285; A6258; A9500; G0378; J1650; J2785; J7030; J7040

== ENCOUNTER 2024-04-03 18:44 | Emergency (ER) | payer MEDICARE, MEDICAID ==
[~2024-04-03] VITALS: Ht 172.7 cm; Wt 65.8 kg
[~2024-04-03 18:44] MED LIST changes: +HYDR-3965 PO
[2024-04-03 19:04] VITALS: BP 146/66; PULSE 60; RESP 15; O2SAT 99
[2024-04-03] MEDS ORDERED: KEN0.1O TP (20:40)
[2024-04-03 20:46] VITALS: TEMP 96.8
== END 2024-04-03 20:54 | disposition home or self-care (01) ==
LOC: ER 18:45
DX: R21 Rash and other nonspecific skin eruption (principal); R05.9 Cough, unspecified; Z86.73 Personal history of transient ischemic attack (TIA), and cerebral infarction without residual deficits; Z88.0 Allergy status to penicillin; Z88.8 Allergy status to other drugs, medicaments and biological substances; Z20.822 Contact with and (suspected) exposure to COVID-19
CPT/HCPCS: 36415; 71045; 87502; 87503; 87811; 93005; 99285

== ENCOUNTER 2024-04-13 19:11 | Emergency (ER) | payer MEDICARE, MEDICAID ==
[~2024-04-13] VITALS: Ht 172.7 cm; Wt 84.0 kg
[~2024-04-13 19:11] MED LIST changes: +KEN0.1O TP
[2024-04-13 19:15] VITALS: PULSE 61; TEMP 97.9; O2SAT 99
[2024-04-13 19:22] VITALS: RESP 17
[2024-04-13 20:18] LABS: BASOPHILS # (AUTO) 0.1 X10'3 (0-0.2); BASOPHILS % (AUTO) 1.1 % (0-1); EOSINOPHILS # (AUTO) 0.3 X10'3 (0-0.9); EOSINOPHILS % (AUTO) 2.1 % (0-6); HEMATOCRIT 39.9 % (42.0-52.0); HEMOGLOBIN 13.2 g/dl (14.0-17.9); LYMPHOCYTES # (AUTO) 2.9 X10'3 (1.1-4.8); LYMPHOCYTES % (AUTO) 23.1 % (21-51); MEAN CORPUSCULAR HEMOGLOBIN 29.9 PG (27.0-31.0); MEAN CORPUSCULAR HGB CONC 33.1 g/dL (33.0-36.5); MEAN CORPUSCULAR VOLUME 90.2 FL (78-98); MEAN PLATELET VOLUME 8.9 FL (7.4-10.4); MONOCYTES # (AUTO) 1.2 X10'3 (0-0.9); MONOCYTES % (AUTO) 9.8 % (2-12); NEUTROPHILS % (AUTO) 63.9 % (42-75); PLATELET COUNT 297 X10'3 (140-440); RED BLOOD COUNT 4.42 X10'6 (4.70-6.10); RED CELL DISTRIBUTION WIDTH 14.2 % (11.5-14.5); WHITE BLOOD COUNT 12.4 X10'3 (4.5-11.0)
[2024-04-13 20:29] LABS: ALANINE AMINOTRANSFERASE 16 U/L (12-78); ALBUMIN 3.4 G/DL (3.4-5.0); ALBUMIN/GLOBULIN RATIO 0.9 (1.1-1.5); ALKALINE PHOSPHATASE 89 IU/L (46-116); ANION GAP 6 (8-16); ASPARTATE AMINO TRANSFERASE 9 U/L (10-37); BILIRUBIN,TOTAL 0.2 MG/DL (0.1-1.0); BLOOD UREA NITROGEN 17 MG/DL (7-18); BUN/CREATININE RATIO 21.5 (10.0-20.0); CALCIUM 9.5 MG/DL (8.5-10.1); CHLORIDE 103 MMOL/L (99-107); CREATININE 0.79 MG/DL (0.60-1.10); GLUCOSE 98 MG/DL (70-104); POTASSIUM 4.3 MMOL/L (3.5-5.1); SODIUM 141 MMOL/L (135-145); TOTAL CARBON DIOXIDE 31.7 MMOL/L (24-32); TOTAL PROTEIN 7.4 G/DL (6.4-8.2); eCRCL 89 ML/MIN; eGFR > 90 ML/MIN
[2024-04-13 20:41] LABS: PRO BRAIN NATRIURETIC PEPTIDE 107 PG/ML (0-125)
[2024-04-13 22:10] VITALS: BP 113/60
== END 2024-04-13 22:14 | disposition home or self-care (01) ==
LOC: ER 19:12
DX: R07.89 Other chest pain (principal); G89.29 Other chronic pain; M54.9 Dorsalgia, unspecified; Z59.00 Homelessness unspecified; Z56.0 Unemployment, unspecified; Z88.0 Allergy status to penicillin; Z88.1 Allergy status to other antibiotic agents; Z79.899 Other long term (current) drug therapy; Z86.73 Personal history of transient ischemic attack (TIA), and cerebral infarction without residual deficits
CPT/HCPCS: 36415; 71045; 80053; 83880; 84484; 85025; 93005; 99285

== ENCOUNTER 2024-06-25 19:10 | Emergency (ER) | payer MEDICARE, MEDICAID ==
[~2024-06-25] VITALS: Ht 175.3 cm; Wt 72.7 kg
[~2024-06-25 19:10] MED LIST changes: -HYDR-3965 PO; -KEN0.1O TP
[2024-06-25 19:13] VITALS: TEMP 98
[2024-06-25 19:43] LABS: BASOPHILS # (AUTO) 0.1 X10'3 (0-0.2); EOSINOPHILS # (AUTO) 0.5 X10'3 (0-0.9); EOSINOPHILS % (AUTO) 3.8 % (0-6); HEMATOCRIT 40.4 % (42.0-52.0); HEMOGLOBIN 13.6 g/dl (14.0-17.9); LYMPHOCYTES # (AUTO) 2.3 X10'3 (1.1-4.8); MEAN CORPUSCULAR HGB CONC 33.6 g/dL (33.0-36.5); MEAN CORPUSCULAR VOLUME 89.4 FL (78-98); MEAN PLATELET VOLUME 7.9 FL (7.4-10.4); MONOCYTES # (AUTO) 0.8 X10'3 (0-0.9); NEUTROPHILS # (AUTO) 8.4 X10'3 (1.8-7.7); NEUTROPHILS % (AUTO) 69.2 % (42-75); PLATELET COUNT 279 X10'3 (140-440); RED BLOOD COUNT 4.52 X10'6 (4.70-6.10); RED CELL DISTRIBUTION WIDTH 14.6 % (11.5-14.5); WHITE BLOOD COUNT 12.1 X10'3 (4.5-11.0)
[2024-06-25 19:56] LABS: ALANINE AMINOTRANSFERASE 18 U/L (12-78); ALBUMIN 3.2 G/DL (3.4-5.0); ALKALINE PHOSPHATASE 92 IU/L (46-116); ANION GAP 8 (8-16); ASPARTATE AMINO TRANSFERASE 13 U/L (10-37); BILIRUBIN,TOTAL 0.2 MG/DL (0.1-1.0); BLOOD UREA NITROGEN 16 MG/DL (7-18); BUN/CREATININE RATIO 13.9 (10.0-20.0); CALCIUM 8.8 MG/DL (8.5-10.1); CHLORIDE 108 MMOL/L (99-107); CREATININE 1.15 MG/DL (0.60-1.10); GLUCOSE 143 MG/DL (70-104); SODIUM 143 MMOL/L (135-145); TOTAL CARBON DIOXIDE 27.4 MMOL/L (24-32); TOTAL PROTEIN 6.3 G/DL (6.4-8.2); eCRCL 63 ML/MIN; eGFR 64 ML/MIN
[2024-06-25 20:05] LABS: PRO BRAIN NATRIURETIC PEPTIDE 166 PG/ML (0-125)
[2024-06-25] MEDS ORDERED: PERM60CR27 TOP (22:56)
[2024-06-25 23:09] VITALS: BP 154/84; PULSE 60; RESP 16; O2SAT 98
[2024-06-25] MEDS: Permethrin 1% 59ml topical rinse TP ONE (23:25)
[2024-06-25] MEDS: Permethrin Cream 60gm TP ONE (23:25)
== END 2024-06-25 23:25 | disposition home or self-care (01) ==
LOC: ER 19:11
DX: R07.9 Chest pain, unspecified (principal); B85.2 Pediculosis, unspecified; Z86.73 Personal history of transient ischemic attack (TIA), and cerebral infarction without residual deficits; Z88.0 Allergy status to penicillin; Z88.8 Allergy status to other drugs, medicaments and biological substances; Z95.1 Presence of aortocoronary bypass graft
CPT/HCPCS: 36415; 71045; 80053; 83880; 84484; 85025; 93005; 99285

== ENCOUNTER 2024-07-29 18:40 | Emergency (ER) | payer MEDICARE, MEDICAID ==
[~2024-07-29] VITALS: Ht 172.7 cm; Wt 88.0 kg
--- NOTE | 2024-07-29 19:39 | Physician Documentation ---
History of Present Illness ~ Chief Complaint: Toe pain Stated Complaint: FOOT PAIN Time Seen by MD: 19:28 Primary Medical Doctor: [facility] HPI 64-year-old male presents to the ED with a complaint of chronic left great toe pain. States he feels like his toe has developed a crusty like toenail.. Denies any fevers or difficulty ambulating. Day of Onset: July 29, 2024 Tetanus witin 5 years: No Medication Reconciliation Allergies: Coded Allergies: Penicillins (Unverified Allergy, Unknown, 04/13/24) amoxicillin (Verified Allergy, Unknown, 04/13/24) carisoprodol (Unverified Allergy, Unknown, 04/13/24) Uncoded Allergies: PCN (Allergy, Unknown, 09/17/22) Scheduled Atorvastatin Calcium (Atorvastatin Calcium), 1 TAB PO DAILY, (Reported) Cholecalciferol (Vitamin D3) (Vitamin D3), 1 TAB PO DAILY, (Reported) Clopidogrel Bisulfate (Clopidogrel), 1 TAB PO DAILY, (Reported) Lacosamide (Vimpat), 100 MG PO BID Lacosamide (Vimpat), 1 TAB PO Q12H Lisinopril (Lisinopril), 1 TAB PO DAILY, (Reported) Metoprolol Succinate (Metoprolol Succinate), 1 TAB PO DAILY, (Reported) Pantoprazole Sodium (Pantoprazole Sodium), 1 TAB PO BID, (Reported) Tamsulosin Hcl (Flomax), 1 CAP PO DAILY, (Reported) Discontinued Medications Permethrin 5% Cream* (Elimite 5% Cream*), 1 APPLIC TOP ONCE Discontinued Reason: Auto Discontinued Past Medical History Past Medical History: CVA/TIA/Stroke, Chronic Pain, Chronic Back Pain Past Surgical History: noncontributory Patient History: Patient reports no known family medical history. Alcohol Use: None Lives with: Alone Lives In: Homeless Occupation: unemployed Review of Systems All Other Systems at this time: Reviewed and Negative ROS As stated above in the HPI, otherwise all systems are reviewed and negative. Physical Exam Vital Signs: Temperature: 98.5, Heart Rate: 60, Respiratory Rate: 16, BP: 118/60, Pulse Oximetry: 94, Weight: 88.000 Oxygen Flow Rate: 0 Physical Exam General: Alert, no apparent distress. Extremities: Normal range of motion, left great toe notable for yellowish tinged and thickened toenail with curvature Neurologic: Oriented x4. Psychiatric: Normal mood and affect. Skin: Normal color, warm and dry. No edema, no ecchymosis. Progress Results/Orders Results/Orders Vital Signs 07/29/24 07/29/24 18:50 19:45 Temp 98.5 98.6 Pulse 60 58 Resp 16 16 B/P (MAP) 118/60 118/58 Pulse Ox 94 98 O2 Flow Rate 0 Medical Decision Making Findings Patient presents with a all the clinical indications for onychomycosis.. I discussed with the patient on how he can alleviate his symptoms via going to his primary care in obtaining an and normal dose of antifungal. Also advised him of possible topical remedies. Departure Disposition: HOME / SELF CARE / HOMELESS Impression: Primary Impression: Onychomycosis Condition: Stable Discharge Instructions: Fungal Nail Infection Referrals: NO PRIMARY CARE PROVIDER (PCP) Signature Scribe Signature: g Attestation: The note accurately reflects work and decisions made by me.Archie Prater NP 07/29/24 23:58 ARCHIE GERMAN NP July 29, 2024 19:39
[2024-07-29 19:45] VITALS: BP 118/58; PULSE 58; RESP 16; TEMP 98.6; O2SAT 98
== END 2024-07-29 19:47 | disposition home or self-care (01) ==
LOC: ER 18:41
DX: B35.1 Tinea unguium (principal); Z86.73 Personal history of transient ischemic attack (TIA), and cerebral infarction without residual deficits; Z88.0 Allergy status to penicillin; Z88.8 Allergy status to other drugs, medicaments and biological substances
CPT/HCPCS: 99284

== ENCOUNTER 2024-10-29 20:39 | Emergency (ER) | payer MEDICARE, MEDICAID ==
[~2024-10-29] VITALS: Ht 172.7 cm; Wt 81.8 kg
[2024-10-29 20:43] VITALS: BP 128/63; PULSE 67; RESP 16; O2SAT 96
[2024-10-29] MEDS: Permethrin 1% 59ml topical rinse TP ONE (21:49)
--- NOTE | 2024-10-29 21:55 | Physician Documentation ---
History of Present Illness ~ Chief Complaint: See Chief Complaint Stated Complaint: LICE Time Seen by MD: 20:49 Primary Medical Doctor: [facility] HPI 64-year-old male presents to the ED with a complaint of lice. States he has been staying at the [facility] and has been recently treated for it however the [facility] indicates that he still has lice and requires treatment. Medication Reconciliation Allergies: Coded Allergies: Penicillins (Unverified Allergy, Unknown, 10/29/24) amoxicillin (Verified Allergy, Unknown, 10/29/24) carisoprodol (Unverified Allergy, Unknown, 10/29/24) Uncoded Allergies: PCN (Allergy, Unknown, 09/17/22) Scheduled Atorvastatin Calcium (Atorvastatin Calcium), 1 TAB PO DAILY, (Reported) Cholecalciferol (Vitamin D3) (Vitamin D3), 1 TAB PO DAILY, (Reported) Clopidogrel Bisulfate (Clopidogrel), 1 TAB PO DAILY, (Reported) Lacosamide (Vimpat), 100 MG PO BID Lacosamide (Vimpat), 1 TAB PO Q12H Lisinopril (Lisinopril), 1 TAB PO DAILY, (Reported) Metoprolol Succinate (Metoprolol Succinate), 1 TAB PO DAILY, (Reported) Pantoprazole Sodium (Pantoprazole Sodium), 1 TAB PO BID, (Reported) Permethrin 5% Cream* (Elimite 5% Cream*), 1 APPLIC TOP ONCE Tamsulosin Hcl (Flomax), 1 CAP PO DAILY, (Reported) Past Medical History Past Medical History: CVA/TIA/Stroke, Chronic Pain, Chronic Back Pain Past Surgical History: noncontributory Patient History: Patient reports no known family medical history. Alcohol Use: None Lives with: Alone Lives In: Homeless Occupation: unemployed Review of Systems All Other Systems at this time: Reviewed and Negative ROS As stated above in the HPI, otherwise all systems are reviewed and negative. Physical Exam Vital Signs: Temperature: 98.3, Source: Oral, Heart Rate: 67, Respiratory Rate: 16, BP: 128/63, Pulse Oximetry: 96, Weight: 81.820 Physical Exam General: Alert, no apparent distress. Respiratory: Lungs clear, no respiratory distress. Cardiovascular: Regular rate and rhythm, no murmurs. Gastrointestinal: Soft, nontender, nondistended. Bowels sounds present. Neurologic: Oriented x4. Psychiatric: Normal mood and affect. Skin: Normal color, warm and dry. No edema, no ecchymosis. Progress Results/Orders Results/Orders Completed Orders - ARCHIE GERMAN NP Permethrin Hair Rinse (Lice Treatment) (10/29/24 20:50) Medications Received in ER Medications (Trade) Dose Ordered Sig/Melvin Route PRN Reason Start Time Stop Time Status Last Admin Dose Admin (Lice Treatment) 1 applic ONCE ONCE TP 10/29/24 20:50 10/29/24 20:51 DC 10/29/24 21:49 1 APPLIC Vital Signs 10/29/24 10/29/24 20:43 22:06 Temp 98.3 98.3 Pulse 67 Resp 16 B/P (MAP) 128/63 Pulse Ox 96 Medical Decision Making Findings Patient was treated for lice via permethrin cream I also had the nursing staff shave his joseph to prevent further infestation. Differential Dx:Considerations: Include: Abscess, AIDS/HIV, Anthrax (cutaneous), Atopic dermatitis, Candidiasis, Contact dermatitis, Drug reaction, Erythema multiforme, Erysipelas, Gangrene, Herpes zoster, Herpes simplex, Hidradenitis suppurativa, Impetigo, Intertrigo, Lymes disease, Molluscum contagiosum, Osteomyelitis, Pediculosis, Pityriasis rosea, Psoriaisis, RMSF, Rosacea, Scabies, Scarlet fever, Tinea, Urticaria, Varicella, Viral exanthema, Other Departure Disposition: 01 HOME / SELF CARE / HOMELESS Impression: Primary Impression: Lice infestation Discharge Instructions: Lice, Adult Referrals: NO PRIMARY CARE PROVIDER (PCP) Prescriptions Permethrin 5% Cream* (Elimite 5% Cream*) 60 Gm Cream.gm. 1 APPLIC TOP ONCE, #60 GM massage into skin from head to soles of feet one time, leave on for 8-14 hours then remove by thorough washing Prov: ARCHIE GERMAN NP 10/29/24 Education Educated: Patient Educated regarding: diagnosis Signature Scribe Signature: f Attestation: Scribed for Archie German Np by Archie Prater NP . 10/29/24 23:10 ARCHIE GERMAN NP Oct 29, 2024 21:55
[2024-10-29] MEDS ORDERED: PERM60CR27 TOP (21:56)
[2024-10-29 22:06] VITALS: TEMP 98.3
== END 2024-10-29 22:08 | disposition home or self-care (01) ==
LOC: ER 20:40
DX: B85.2 Pediculosis, unspecified (principal); Z88.0 Allergy status to penicillin; Z88.8 Allergy status to other drugs, medicaments and biological substances; Z59.00 Homelessness unspecified; Z86.73 Personal history of transient ischemic attack (TIA), and cerebral infarction without residual deficits
CPT/HCPCS: 99283; Z7610

== ENCOUNTER 2024-11-08 16:53 | Emergency (ER) | payer MEDICARE, MEDICAID ==
[~2024-11-08] VITALS: Ht 177.8 cm; Wt 89.8 kg
[~2024-11-08 16:53] MED LIST changes: +ASPI-1265 PO; +DOXY-243 PO; -FLO0.4C PO; -LACO100T2 PO; -LACO50TA2 PO; +PANT-47 PO; -PANT40TA54 PO
--- NOTE | 2024-11-08 17:08 | ELECTROCARDIOGRAPH REPORT ---
[facility] Test Date: 2024-11-08 Test Time: 16:57:50 Pat Name: ANTOINE PERRY Department: EMERGENCY ROOM Room: Gender: M Mechanic Insulator: INOCENCIA : 1960 Requested By: MAXIMINO JEAN Order Number: [id number] Reading MD: Measurements Intervals [place] Rate: 109 P: 67 WA: 149 QRS: 64 QRSD: 104 T: -80 QT: 363 QTc: 489 Interpretive Statements Sinus tachycardia Multiform ventricular premature complexes Nonspecific T abnormalities, lateral leads Borderline prolonged QT interval Please click the below link to view image of tracing.
--- NOTE | 2024-11-08 17:08 | Physician Documentation ---
History of Present Illness General Chief Complaint: Seizure Stated Complaint: ALOC Time Seen by MD: 17:08 OK to notify your PCP?: No Primary Medical Doctor: [facility] Source: RN/, RN notes reviewed, old records Mode of Arrival: Stretcher Exam Limitations: clinical condition (unresponsive) History of Present Illness Initial Comments 64 year old male, with a history of seizure, pacemaker, and CVA, who was disc harged today from the surgical floor, brought back to the ED after a bystander witnessed patient having a possible seizure at the bus stop just outside the hospital. Bystanders pulled into the EMS parking area and reported there was a man at the bus stop on the ground having an apparent seizure. Staff responded immediately and found the patient lying on the ground with his eyes wide open and unresponsive, with a blood coming from his right face/scalp. The patient was brought into the emergency department on a gurney. Per old records, patient was admitted to this hospital two nights ago for prolonged QTC of 553 milliseconds, left arm cellulitis, and chest pain. During admission the patient was given IV antibiotics with improvement of left arm swelling and redness. He had a nuclear med Lexiscan which showed no reversible defects. He had CT of the left upper extremity with findings consistent with cellulitis. Finally he had echocardiogram with EF approximately 65%. It appears he was discharged today, however there was no discharge note at this time. Hemoglobin A1c was 5.5. Patient was also seen in November of last year for seizure and was prescribed medications at that time. It is unclear if he has been taking these, as there is no apparent mentioned in his recent admission regarding seizure history or medications. Medication Reconciliation Allergies: Coded Allergies: Penicillins (Unverified Allergy, Unknown, 11/08/24) amoxicillin (Verified Allergy, Unknown, 11/08/24) carisoprodol (Unverified Allergy, Unknown, 11/08/24) Uncoded Allergies: PCN (Allergy, Unknown, 09/17/22) Scheduled Aspirin (Aspirin), 1 TAB PO DAILY, (Reported) Atorvastatin Calcium (Atorvastatin Calcium), 1 TAB PO DAILY, (Reported) Cholecalciferol (Vitamin D3) (Vitamin D3), 1 TAB PO DAILY, (Reported) Clopidogrel Bisulfate (Clopidogrel), 1 TAB PO DAILY, (Reported) Doxycycline Hyclate (Doxycycline Hyclate), 100 MG PO BID Lacosamide (Vimpat), 1 TAB PO Q12H Lisinopril (Lisinopril), 1 TAB PO DAILY, (Reported) Metoprolol Succinate (Metoprolol Succinate), 1 TAB PO DAILY, (Reported) Pantoprazole Sodium (PROTONIX tablet), 40 MG PO DAILY Discontinued Medications Lacosamide (Vimpat), 100 MG PO BID Discontinued Reason: patient no longer taking Pantoprazole Sodium (Pantoprazole Sodium), 1 TAB PO BID, (Reported) Discontinued Reason: patient no longer taking Permethrin 5% Cream* (Elimite 5% Cream*), 1 APPLIC TOP ONCE Discontinued Reason: patient no longer taking Tamsulosin Hcl (Flomax), 1 CAP PO DAILY, (Reported) Discontinued Reason: patient no longer taking Past Medical History Past Medical History: CVA/TIA/Stroke, Seizures, Chronic Pain, Chronic Back Pain Past Surgical History: noncontributory Alcohol Use: None Drug Use: none Lives with: Alone Lives In: Homeless Occupation: unemployed Unable to obtain complete PMH: altered mental status Review of Systems Unable to obtain complete ROS: altered mental status Physical Exam Physical Exam Vital Signs: RN Vital Signs have been reviewed: Yes, Heart Rate: 117, Respiratory Rate: 24, BP: 168/79, Pulse Oximetry: 100, Weight: 89.800 Oxygen Flow Rate: 15.0 Physical Exam VITALS: Reviewed and as above. GENERAL: Moderate distress. HEENT: Pupils are 6 mm and minimally reactive bilaterally. Eyes deviated to the left. Multiple abrasions over face: 3 cm x 3 cm over right eyebrow, 3 cm x 3 cm to right upper frontal scalp, 4 cm x 4 cm to right temporal area. Poor dentition. Normocephalic, EOMI, dry mucosa RESPIRATORY: Rhonchi bilaterally. Gurgling respirations, [id number] respiratory distress. CHEST: Mid sternal scar. Pacemaker left upper chest. No accessory muscle use, no retractions CV: Tachycardic, regular rhythm, no murmur, No: JVD GI: Soft, non-tender. MUSCULOSKELETAL: See SKIN. No deformities, no edema SKIN: See HEENT. Multiple scabs over left forearm with erythema. Abrasions to dorsal left hand and wrist. Warm and dry, no rash NEURO: See HEENT. Unresponsive to painful stimuli. Positive gag reflex. Not moving extremities. PSYCH: Unable to assess. Progress Progress Note 1709: Patient now answering questions. A&Ox1. 1800: Care of patient passed to Dr. Jorge, oncoming physician. Pending completing workup and admission. Results/Orders Reviewed/noted all lab results: Yes Results/Orders Orders - MAXIMINO KIRAN MD Chest,Single View (11/08/24 17:04) Monitor (11/08/24 17:04) Saline Lock (11/08/24 17:04) Oxygen (11/08/24 17:04) Ct Head (11/08/24 ) Ct Cervical Spine (11/08/24 ) Completed Orders - MAXIMINO KIRAN MD Cbc/Diff (11/08/24 17:04) CMP (11/08/24 17:04) Procalcitonin (11/08/24 17:04) LA (11/08/24 17:04) Chest,Single View (11/08/24 17:04) Electrocardiogram (11/08/24 17:04) Hs Troponin I W Calculations (11/08/24 17:05) Hs Troponin I W Calculations (11/08/24 19:04) Hs Troponin I W Calculations (11/08/24 20:04) Normal Saline 1000ml (0.9% Sodium Chlori (11/08/24 17:10) Lorazepam Inj (Ativan Inj) (11/08/24 17:10) Lorazepam Inj (Ativan Inj) (11/08/24 17:09) Levetiracetamnacl 1500mg/100ml (Levetira (11/08/24 17:14) Ct Head (11/08/24 ) Ct Cervical Spine (11/08/24 ) Normal Saline 1000ml (0.9% Sodium Chlori (11/08/24 17:55) Ethanol (11/08/24 17:04) Lactic,2hr (11/08/24 19:03) Vital Signs 11/08/24 11/08/24 11/08/24 11/08/24 16:56 17:00 17:13 17:20 Pulse 117 102 102 Resp 24 17 24 23 B/P (MAP) 168/79 168/79 (108) 137/75 (95) Pulse Ox 100 O2 Flow Rate 15.0 9/08/2711/08/24 11/08/24 11/08/24 17:40 18:00 18:20 18:40 Pulse 87 80 78 93 Resp 13 12 17 22 B/P (MAP) 132/75 (94) 143/74 (97) 135/65 (88) Pulse Ox 90 99 95 11/08/24 11/08/24 11/08/24 11/08/24 19:00 19:20 19:40 19:41 Pulse 65 64 64 Resp 17 17 16 B/P (MAP) 101/56 (71) 117/61 (79) 123/71 (88) Pulse Ox 92 96 O2 Delivery [place]ter Nasal Cannula* O2 Flow Rate 2 FiO2 N/A 11/08/24 11/08/24 11/08/24 21:43 22:43 23:18 Pulse 68 70 74 Resp 16 16 16 B/P (MAP) 164/82 (109) 116/58 (77) 132/66 Pulse Ox 94 98 98 Laboratory Tests Test 11/08/24 16:56 11/08/24 17:04 11/08/24 17:06 11/08/24 19:04 Glucometer 144 H Sodium Level 139 Potassium Level 4.0 Chloride Level 98 L Carbon Dioxide Level 10.6 *L Anion Gap 30 H Blood Urea Nitrogen 13 Creatinine 1.43 H Estimated GFR/1.73 m2 49 BUN/Creatinine Ratio 9.1 L Glucose Level 167 H Calcium Level 9.7 Total Bilirubin 0.3 Aspartate Amino Transf (AST/SGOT) 14 Alanine Aminotransferase (ALT/SGPT) 19 Alkaline Phosphatase 103 Total Protein 8.6 H Albumin 3.6 Globulin 5.0 H Albumin/Globulin Ratio 0.7 L Chemistry Comments Ethyl Alcohol Level < 10 White Blood Count 19.2 H Red Blood Count 4.33 L Hemoglobin 13.5 L Hematocrit 41.5 L Mean Corpuscular Volume 95.9 # Mean Corpuscular Hemoglobin 31.2 H Mean Corpuscular Hemoglobin Concent 32.5 L Red Cell Distribution Width 14.1 Platelet Count 477 H Mean Platelet Volume 7.5 Neutrophils (%) (Auto) 54.9 Lymphocytes (%) (Auto) 35.5 Monocytes (%) (Auto) 7.5 Eosinophils (%) (Auto) 1.7 Basophils (%) (Auto) 0.4 Neutrophils # (Auto) 10.5 H Lymphocytes # (Auto) 6.8 H Monocytes # (Auto) 1.4 H Eosinophils # (Auto) 0.3 Basophils # (Auto) 0.1 CBC Comment Lactic Acid Level 22.1 *H Troponin I High Sensitivity 5 13 Troponin I High Sens Percent Delta 44 160 Troponin I Hi Sens Absolute Change -4 8 Procalcitonin < 0.05 Test 11/08/24 19:37 11/08/24 20:15 11/08/24 22:44 Urine Specimen Description Sue cath Urine Color Yellow Urine Clarity Clear Urine pH 5.5 Urine Specific [place] 1.025 Urine Protein Negative Urine Glucose (UA) Negative Urine Ketones Negative Urine Occult Blood Trace-intact Urine Nitrite Negative Urine Bilirubin Negative Urine Urobilinogen 0.2 Urine Leukocyte Esterase Negative Urine RBC 3-10 Urine WBC 0-4 Urine Squamous Epithelial Cells None seen Urine Bacteria Few Urine Culture Indicated Not ind Volume Urine Centrifuged 10 ml Urine Comment Urine Opiates Screen Negative Urine Methadone Screen Negative Urine Fentanyl Screen Negative Urine Barbiturates Screen Negative Urine Phencyclidine Screen Negative Urine Amphetamines Screen Negative Urine Benzodiazepines Screen Negative Urine Cocaine Screen Negative Urine Cannabinoids Screen Negative Drug Screen Comment Sodium Level 139 Potassium Level 4.2 Chloride Level 108 H Carbon Dioxide Level 24.3 Anion Gap 7 L Blood Urea Nitrogen 14 Creatinine 0.96 Estimated GFR/1.73 m2 78 BUN/Creatinine Ratio 14.6 Glucose Level 120 H Lactic Acid Level 1.9 0.9 Calcium Level 8.8 Troponin I High Sensitivity 20 Troponin I High Sens Percent Delta 53 Troponin I Hi Sens Absolute Change 7 Albumin 2.9 L Chemistry Comments White Blood Count 23.0 H Red Blood Count 4.16 L Hemoglobin 12.7 L Hematocrit 37.6 L Mean Corpuscular Volume 90.4 # Mean Corpuscular Hemoglobin 30.5 Mean Corpuscular Hemoglobin Concent 33.8 Red Cell Distribution Width 13.8 Platelet Count 399 Mean Platelet Volume 7.5 Neutrophils (%) (Auto) 85.2 H Lymphocytes (%) (Auto) 10.4 L Monocytes (%) (Auto) 3.9 Eosinophils (%) (Auto) 0.2 Basophils (%) (Auto) 0.3 Neutrophils # (Auto) 19.6 H Lymphocytes # (Auto) 2.4 Monocytes # (Auto) 0.9 Eosinophils # (Auto) 0.0 Basophils # (Auto) 0.1 CBC Comment EKG/XRAY/CT/US/VASC/MRI EKG : Additional Comment 1657: EKG interpreted by myself to show sinus tachycardia at a rate of 109bpm. PVCs, normal axis, nonspecific ST changes. Chest X-Ray : Additional Comments 7588: 1 view CXR interpreted by myself to show sternal wires, no infiltrates, no effusion. CT : Interpreted By: radiologist CT: head With Contrast?: No Impression Procedure: CT CT HEAD [facility] Study Date and Requested Time: 11/08/2024 05:21 PM History: seizure fall Comparison: CT CT HEAD on DOS: 11/11/23, CT HEAD on DOS: 01/20/22, CT HEAD on DOS: 10/24/21 Dose: CTDI: 64.52 mGy DLP: 1281.37 mGycm Technique: Multiplanar images obtained through the brain without intravenous contrast. Findings: Redemonstration of Right frontal lobe , left temporal lobe and left occipital lobe areas of encephalomalacia with associated ex vacuo dilatation of the adjacent lateral ventricles. Right cerebellar chronic lacunar infarct No hemorrhages, masses, mass effect, midline shift, herniation or new cytotoxic edema following a large vascular territory. No intra-axial or extra-axial fluid collections. No evidence of hydrocephalus. The basal cisterns are patent. The pituitary gland, sella and parasellar regions are unremarkable. The cerebellar tonsils are in normal position. The cerebellum is otherwise unremarkable. The orbits and globes are unremarkable. Mucous retention cyst within the right maxillary sinus. Otherwise, the paranasal sinuses and mastoids are clear. There are no worrisome calvarial lesions. Mild right frontal scalp soft tissue edema. Impression: Redemonstration of chronic right frontal lobe , left temporal lobe and occipital lobe infarcts with right cerebellar chronic lacunar infarct. Superimposed acute infarct can not be excluded. If there is concern for acute infarct, MRI should be considered for further evaluation. No evidence of acute intracranial hemorrhage. Reviewed by myself. Medical Decision Making Additional info obtained from: old records (see HPI) Findings The patient was recently discharged for cellulitis and he was at the bus stop and he had a witnessed seizure of fall and head injury the patient came in unresponsive but breathing on his own with eyes deviated up to left and pupils mid range. Patient had multiple abrasions and blood on the right side of his scalp. Patient has been admitted for seizures in the past I admitted him a year ago for seizures. The patient does not look to be on any seizure medications at this time the patient became more responsive while in the emergency department. The patient was started on Keppra and given IV fluids. The patient was recently discharged for cellulitis. The patient's EKG was interpreted by myself the cardiac rehabilitation program director was a sinus tachycardia. The chest x-ray shows a normal cardiac silhouette normal mediastinum and normal-appearing lung [place] I interpreted the x-ray as a normal-appearing chest x-ray. The patient will be signed out to the oncoming physician for final disposition and admission to the hospital. The patient has received 1.5 g of Keppra as well as 1 mg of Ativan in his 3 L of fluid pending patient's prior hospitalizations have been reviewed cardiac rehabilitation program director was a sinus tachycardia in his pulse oximetry was interpreted as normal. The patient did require critical care time other etiologies considered were hypoglycemic seizure he has a normal blood sugar also we considered intracranial hemorrhage his CT of the head shows no evidence of intracranial hemorrhage just shows an old stroke. Date: Nov 08, 2024 Time: 22:45 Additional note by Tyler Ordoñez, DO: I took over the care of this patient from previous physician. I reviewed any previous notes available, obtain my own history, review of systems and physical examination was performed by myself. The gentleman has been observed. There has been no recurrence of seizure. His metabolic acidosis and lactic acidosis have completely resolved. Patient is hemodynamically stable for discharge home with follow with their primary care provider. [ ] Specific and cautious return precautions provided and discussed with full understanding. Any incidental findings were also discussed and follow up recommendations given. [] All questions answered. Patient/family were able to verbalize back return precautions. Patient/family agree to plan. Copies of imaging and laboratory studies were provided. Departure Disposition: HOME / SELF CARE / HOMELESS Impression: Primary Impression: Seizure Additional Impressions: Head injury Qualified Codes: S09.90XA - Unspecified injury of head, initial encounter Lactic acidosis Condition: Improved Discharge Instructions: Seizure, Adult Additional Instructions: Please take your antiepileptic medications as prescribed. Otherwise you risking recurrence of breakthrough seizure. Prescriptions Lacosamide (Vimpat) 100 Mg Tablet 1 TAB PO Q12H for 30 Days, #60 TAB 0 Refills Prov: TYLER ORDOÑEZ DO 11/08/24 Education Educated: Patient Educated regarding: diagnosis, treatment, prognosis, need for follow up Critical Care Note Total Time (mins): 45 Critical Care Note Critical Care Time: 45 minutes Treatments/Evaluations: Close monitoring and treatment of unstable vital signs, cardiorespiratory, and neurologic status, while maintaining tight balance of fluid, respiratory, and cardiac interventions. This time includes discussing the case with the patient and the patient's family. This time does not include all procedures stated elsewhere in this record. This time also includes reviewing old records, labs and radiological studies. This time includes examining and re- examining the patient. Additionally, this time also includes arranging care with admitting and consulting physicians. Signature Scribe Signature: Scribed for Maximino Kiran MD by Buck Holt . 11/08/24 17:09 No scribe for Maryellen Ordoñez DO Attestation: Date: Nov 08, 2024 Time: 22:48 This note accurately reflects clinical decisions, work performed by myself, DO MIRANDA Deluca BRETT R MD Nov 08, 2024 17:08 BUCK [place] Nov 08, 2024 17:24 TYLER ORDOÑEZ DO Nov 08, 2024 22:48
[2024-11-08] MEDS: normal saline 1000ML IV soln IVB ONE ×2 (17:12→18:09)
[2024-11-08 17:25] LABS: MEAN PLATELET VOLUME 7.5 FL (7.4-10.4)
[2024-11-08 17:36] LABS: CREATININE 1.43 MG/DL (0.60-1.10); eCRCL 52 ML/MIN; eGFR 49 ML/MIN
[2024-11-08 17:43] LABS: TOTAL CARBON DIOXIDE 10.6 MMOL/L (24-32)
[2024-11-08 17:52] LABS: RED CELL DISTRIBUTION WIDTH 14.1 % (11.5-14.5)
--- NOTE | 2024-11-08 17:57 | RADIOLOGY REPORT ---
Procedure: CT CT HEAD [facility] Study Date and Requested Time: 11/08/2024 05:21 PM History: seizure fall Comparison: CT CT HEAD on DOS: 11/11/23, CT HEAD on DOS: 01/20/22, CT HEAD on DOS: 10/24/21 Dose: CTDI: 64.52 mGy DLP: 1281.37 mGycm Technique: Multiplanar images obtained through the brain without intravenous contrast. Findings: Redemonstration of Right frontal lobe , left temporal lobe and left occipital lobe areas of encephalo malacia with associated ex vacuo dilatation of the adjacent lateral ventricles. Right cerebellar rn chronic merced lacunar infarct No hemorrhages, masses, mass effect, midline shift, herniation or new cytotoxic edema following a lar ge vascular territory. No intra-axial or extra-axial fluid collections. No evidence of hydrocephalus. The basal cisterns are patent. The pituitary gland, sella and parasellar regions are unremarkable. The cerebellar tonsils are in nor mal position. The cerebellum is otherwise unremarkable. The orbits and globes are unremarkable. Mucous retention cyst within the right maxillary sinus. Othe rwise, the paranasal sinuses and mastoids are clear. There are no worrisome calvarial lesions. Mild r ight frontal scalp soft tissue edema. Impression: Redemonstration of chronic right frontal lobe , left temporal lobe and occipital lobe infarcts with r ight cerebellar chronic lacunar infarct. Superimposed acute infarct can not be excluded. If there i s concern for acute infarct, MRI should be considered for further evaluation. No evidence of acute intracranial hemorrhage.
--- NOTE | 2024-11-08 18:00 | RADIOLOGY REPORT ---
CHEST RADIOGRAPH Indication: CP Technique: Single frontal view of the chest was obtained Comparison: DI CHEST,SINGLE VIEW on DOS: 11/05/24, DI CHEST,SINGLE VIEW on DOS: 06/25/24, DI CHEST,SINGL E VIEW on DOS: 04/13/24 FINDINGS: Lines and Tubes: None Lungs: No focal consolidation. Pleura: No effusion. No pneumothorax. Cardiomediastinal contours: Heart size is within normal limits with mild atherosclerotic calcificatio n and uncoiling of the aorta. Midline sternotomy wires surgical clips are noted consistent with prio r history of CABG. Left-sided approach dual lead pacemaker terminating within right atrium and right ventricle. Bones: No acute osseous abnormality. IMPRESSION: No acute cardiopulmonary disease.
--- NOTE | 2024-11-08 18:01 | RADIOLOGY REPORT ---
EXAM: CT CT CERVICAL SPINE INDICATION: seizure fall EXAM DATE: 11/08/2024 05:22 PM COMPARISON: CT CT CERVICAL SPINE on DOS: 11/11/23 TECHNIQUE: Multiple axial CT images of the cervical spine were obtained using bone algorithm. Axial a nd coronal reformatting was done. Bone and soft tissue windows were reviewed. Radiation Dose Information: CT Dose: CTDI volume is 21.1 mGy. Dose-length product is 428.71 mGy*cm Findings: There is no evidence of an acute fracture or spondylolisthesis. The vertebral body heights are well-m aintained. The craniocervical junction and dens are intact. Moderate spondylosis from C5-C7. No spinal canal stenosis. There is flattening of the cervical lordosis. The thyroid gland is unremarkable. The lung apices demonstrate no acute abnormality. The paraspinal a nd neck soft tissues appear within normal limits. Right carotid vascular stent. Impression: 1. No evidence of an acute fracture.
[2024-11-08] MEDS: levetiracetamNACL 1500mg/100mL 100 ML IV STA (18:04)
[2024-11-08 18:30] LABS: ETHANOL < 10 MG/DL (<10)
[2024-11-08 19:57] LABS: URINE AMPHETAMINE SCREEN NEGATIVE (Neg); URINE BARBITUATE SCREEN NEGATIVE (Neg); URINE BENZODIAZEPINES SCREEN NEGATIVE (Neg); URINE CANNABINOID SCREEN NEGATIVE (Neg); URINE COCAINE SCREEN NEGATIVE (Neg); URINE METHADONE SCREEN NEGATIVE (Neg); URINE OPIATE SCREEN NEGATIVE (Neg); URINE PHENCYCLIDINE SCREEN NEGATIVE (Neg)
[2024-11-08 21:10] LABS: LEUKOCYTE ESTERASE ,URINE NEGATIVE (Neg); NITRITES, URINE NEGATIVE (Neg); OCCULT BLOOD,URINE TRACE-INTACT (Neg)
[2024-11-08 21:12] LABS: UA COLLECTION TYPE FOLEY CATH
[2024-11-08 21:16] LABS: SQUAMOUS EPITHELIAL CELL,UR NONE SEEN /LPF (FEW)
[2024-11-08 21:46] LABS: CREATININE 0.96 MG/DL (0.60-1.10); TOTAL CARBON DIOXIDE 24.3 MMOL/L (24-32); eCRCL 78 ML/MIN; eGFR 78 ML/MIN
[2024-11-08] MEDS ORDERED: LACO100T2 PO (22:47)
[2024-11-08 23:08] LABS: MEAN PLATELET VOLUME 7.5 FL (7.4-10.4); RED CELL DISTRIBUTION WIDTH 13.8 % (11.5-14.5)
[2024-11-08 23:18] VITALS: BP 132/66; PULSE 74; RESP 16; O2SAT 98
== END 2024-11-08 23:20 | disposition home or self-care (01) ==
LOC: ER 16:54
DX: S09.90XA Unspecified injury of head, initial encounter (principal); R56.9 Unspecified convulsions; E87.20 Acidosis, unspecified; Z86.73 Personal history of transient ischemic attack (TIA), and cerebral infarction without residual deficits; Z88.0 Allergy status to penicillin; Z79.82 Long term (current) use of aspirin; Z88.8 Allergy status to other drugs, medicaments and biological substances; X58.XXXA Exposure to other specified factors, initial encounter; Y93.89 Activity, other specified; Y92.89 Other specified places as the place of occurrence of the external cause; Y99.8 Other external cause status
CPT/HCPCS: 36415; 70450; 71045; 72125; 80048; 80053; 80305; 81001; 82948; 83605; 84145; 84484; 85025; 93005; 96361; 96374; 96375; 99291; A4615; A6223; A6402; A6446; C1758; G0480; J1953; J2060; J7030; 80320; A6449

== ENCOUNTER 2025-02-23 06:33 | Emergency (ER) | payer MEDICARE, MEDICAID ==
[~2025-02-23] VITALS: Ht 177.8 cm; Wt 63.6 kg
[~2025-02-23 06:33] MED LIST changes: -DOXY-243 PO; +LACO100T2 PO
[2025-02-23 06:36] VITALS: BP 167/94; PULSE 77; RESP 18; O2SAT 99
--- NOTE | 2025-02-23 08:52 | Physician Documentation ---
History of Present Illness General Chief Complaint: Toe pain Stated Complaint: FOOT PAIN M BLS Time Seen by MD: 08:52 Primary Medical Doctor: [facility] History of Present Illness Initial Comments 64 year old male presents to the emergency department for complaints of toe pain that began one week ago. Patient states that he had seen his flap presser and is now having pain to his fifth toe on the right side. Medication Reconciliation Allergies: Coded Allergies: Penicillins (Unverified Allergy, Unknown, 02/23/25) amoxicillin (Verified Allergy, Unknown, 02/23/25) carisoprodol (Unverified Allergy, Unknown, 02/23/25) Uncoded Allergies: PCN (Allergy, Unknown, 09/17/22) Scheduled Aspirin (Aspirin), 1 TAB PO DAILY, (Reported) Atorvastatin Calcium (Atorvastatin Calcium), 1 TAB PO DAILY, (Reported) Cephalexin*Monohydrate* (Keflex*), 2 CAP PO BID Cholecalciferol (Vitamin D3) (Vitamin D3), 1 TAB PO DAILY, (Reported) Clopidogrel Bisulfate (Clopidogrel), 1 TAB PO DAILY, (Reported) Doxycycline Monohydrate (Doxycycline Monohydrate), 100 MG PO BID Lacosamide (Vimpat), 1 TAB PO Q12H Lisinopril (Lisinopril), 1 TAB PO DAILY, (Reported) Metoprolol Succinate (Metoprolol Succinate), 1 TAB PO DAILY, (Reported) Pantoprazole Sodium (PROTONIX tablet), 40 MG PO DAILY Past Medical History Past Medical History: CVA/TIA/Stroke, Seizures, Chronic Pain, Chronic Back Pain Past Surgical History: noncontributory Alcohol Use: None Drug Use: none Lives with: Alone Lives In: Homeless Occupation: unemployed Review of Systems All Other Systems at this time: Reviewed and Negative ROS Patient was asked, but denied any other symptoms. All other systems are negative other than those mentioned above. Physical Exam Physical Exam Vital Signs: RN Vital Signs have been reviewed: Yes, Temperature: 98.2, Source: Temporal, Heart Rate: 77, Respiratory Rate: 18, BP: 167/94, Pulse Oximetry: 99, Weight: 63.640 Oxygen Flow Rate: 0 Pulse Oximetry Reflects: adequate oxygenation Physical Exam VITALS: Reviewed and as above. GENERAL: Alert, no apparent distress. HEENT: Normocephalic, atraumatic. PERRL, EOMI. Dry mucosa, no erythema. RESPIRATORY: Lungs clear, normal breath sounds, no respiratory distress. CHEST: No accessory muscle use, no retractions. CV: Regular rate and rhythm. No edema, no murmur, No: JVD GI: Soft, non-tender, bowel sounds present. No rebound, guarding, or rigidity. BACK: No CVA tenderness, no swelling. MUSCULOSKELETAL:Superficial ulceration between skin of forth and fifth right toes. Patient has purulent and bloody discharge to that area. Ecchymosis to distal half of the dorsal fifth toe. Erythema to distal half of dorsal foot measuring 7cm by 4cm. SKIN: Warm and dry, no rash. NEURO: Oriented x4. No motor or sensory deficit. PSYCH: Normal mood and affect, no agitation. Progress Results/Orders Results/Orders Completed Orders - MAXIMINO JEAN MD Doxycycline 100mg Capsule (Vibramycin 10 (02/23/25 08:59) Vital Signs 02/23/25 02/23/25 06:36 09:29 Temp 98.2 98.2 Pulse 77 Resp 18 B/P (MAP) 167/94 Pulse Ox 99 O2 Flow Rate 0 Medical Decision Making Additional information obtaine: old records Findings The patient presents with slight ulceration of his skin between two toes and some localized cellulitis the patient is nontoxic otherwise hemodynamically stable the patient will be placed on antibiotics. The patient has been advised to return for worsening of his symptoms other etiologies were considered but not supported by the evidence, the patient's symptoms avoid he will be going on for 6-7 days and there was not significant skin breakdown making osteomyelitis extremely unlikely. The patient's pulse oximetry was interpreted as normal and adequate Differential Diagnosis Osteomyelitis, cellulitis, allergic reaction Departure Time of Disposition: 09:05 Disposition: 01 HOME / SELF CARE / HOMELESS Impression: Primary Impression: Cellulitis Qualified Codes: L03.031 - Cellulitis of right toe Condition: Stable Discharge Instructions: Cellulitis, Adult, [id number] Referrals: NO PRIMARY CARE PROVIDER (PCP) Prescriptions Cephalexin*Monohydrate* (Keflex*) 500 Mg Capsule 2 CAP PO BID, #28 CAP Prov: MAXIMINO JEAN MD 02/23/25 Doxycycline Monohydrate (Doxycycline Monohydrate) 100 Mg Capsule 100 MG PO BID, #14 CAP may sub doxycycline hyclate Prov: MAXIMINO JEAN MD 02/23/25 Education Educated: Patient Educated regarding: diagnosis, treatment, prognosis, need for follow up Signature Scribe Signature: Scribed by Asad Yadav Attestation: The note accurately reflects work and decisions made by me.Maximino Jean MD 02/24/25 06:26 MAXIMINO JEAN MD Feb 23, 2025 08:52
[2025-02-23] MEDS ORDERED: CEPH-585 PO (09:01)
[2025-02-23] MEDS ORDERED: DOXY100C43 PO (09:01)
[2025-02-23] MEDS: DOXYCYCLINE 100MG CAPSULE PO STA (09:28)
[2025-02-23 09:29] VITALS: TEMP 98.2
== END 2025-02-23 09:30 | disposition home or self-care (01) ==
LOC: ER 06:33
DX: L03.031 Cellulitis of right toe (principal); G89.29 Other chronic pain; Z86.73 Personal history of transient ischemic attack (TIA), and cerebral infarction without residual deficits; Z88.0 Allergy status to penicillin; Z88.8 Allergy status to other drugs, medicaments and biological substances; Z88.1 Allergy status to other antibiotic agents; Z79.82 Long term (current) use of aspirin; Z79.899 Other long term (current) drug therapy; Z59.00 Homelessness unspecified; Z56.0 Unemployment, unspecified
CPT/HCPCS: 99283